=== PATIENT | female | born 1965 | race Caucasian/White ===

== ENCOUNTER 2023-03-10 21:27 | Inpatient (IN) | payer BC ==
[~2023-03-10] VITALS: Ht 170.2 cm; Wt 98.6 kg
[2023-03-10] MEDS ORDERED: ONDANSETRON 4MG 2ML VIAL As Ordered ONE (23:04)
[2023-03-10] MEDS ORDERED: KETOROLAC 30 MG/ML 1ML VIAL As Ordered ONE (23:04)
[2023-03-10 23:05] LABS: BASO # 0.1 10^3/uL (0.0-0.2); BASO % 0.3 % (0.0-1.0); EOS % 0.1 % (0.0-3.0); HEMOGLOBIN 10.7 g/dl (12.0-15.5); LYMPH # 2.3 10^3/uL (1.5-5.0); LYMPH % 13.2 % (24.0-44.0); MEAN CORPUSCULAR HEMOGLOBIN 30.5 pg (27.0-33.0); MEAN CORPUSCULAR HGB CONC 33.4 g/dl (32.0-36.5); MEAN CORPUSCULAR VOLUME 91.2 fl (80.0-96.0); MONO # 0.9 10^3/uL (0.0-0.8); MONO % 5.2 % (2.0-8.0); NEUTROPHILS # 13.6 10^3/uL (1.5-8.5); NEUTROPHILS % 79.4 % (36.0-66.0); PLATELET COUNT, AUTOMATED 206 10^3/uL (150-450); RED BLOOD COUNT 3.51 10^6/uL (4.00-5.40); WHITE BLOOD COUNT 17.1 10^3/uL (4.0-10.0)
[2023-03-10] MEDS ORDERED: KETOROLAC 30 MG/ML 1ML VIAL IV ONE (23:05)
[2023-03-10] MEDS ORDERED: NS 1,000 ML IV ONE (23:05)
[2023-03-10] MEDS ORDERED: ONDANSETRON 4MG 2ML VIAL IV ONE (23:05)
[2023-03-10 23:32] LABS: ALBUMIN 2.1 G/DL (3.2-5.2); BILIRUBIN,DIRECT 0.4 MG/DL (<0.4); BILIRUBIN,TOTAL 0.7 MG/DL (0.3-1.2); CALCIUM LEVEL 8.3 MG/DL (8.5-10.1); CREATININE FOR GFR 1.04 MG/DL (0.55-1.30); GLOMERULAR FILTRATION RATE 58.1 (>51); POTASSIUM SERUM 3.6 MMOL/L (3.5-5.1); TOTAL PROTEIN 5.9 G/DL (5.7-8.2)
[2023-03-11] VITALS (7 sets, daily range): BP systolic 100–119; BP diastolic 54–66; TEMP 97–97.3; O2SAT 93–98
[2023-03-11] MEDS ORDERED: CEFEPIME HCL 2 GM in D5W 50 ML IV SCH ×2
[2023-03-11] MEDS ORDERED: ASPI-161 PO (00:23)
[2023-03-11] MEDS ORDERED: AMLO1TAB24 PO (00:23)
[2023-03-11] MEDS ORDERED: LEVO100T5 PO (00:23)
[2023-03-11] MEDS ORDERED: LOSA100T46 PO (00:23)
[2023-03-11] MEDS ORDERED: VITA-243 PO (00:23)
[2023-03-11] MEDS ORDERED: DULA3PEN SQ (00:23)
[2023-03-11] MEDS ORDERED: D32000CA PO (00:23)
[2023-03-11] MEDS ORDERED: HOME MED LIST COMPLETE! XX SCH (00:25)
[2023-03-11] MEDS ORDERED: GLUCAGON INJ 1MG VIAL SC PRN (00:30)
[2023-03-11] MEDS ORDERED: DEXTROSE 50% 50ML SYRINGE IV PRN (00:30)
[2023-03-11] MEDS ORDERED: HYDROMORPHONE HCL 0.5 MG/ 0.5 ML SYRINGE IV PRN ×3 (00:30→12:05)
[2023-03-11] MEDS ORDERED: ACETAMINOPHEN TAB 650MG DOSE (2X325MG) PO PRN (00:30)
[2023-03-11] MEDS ORDERED: GLUCOSE 4GM CHEW TABLET PO PRN (00:30)
[2023-03-11] MEDS ORDERED: ONDANSETRON 4MG 2ML VIAL IV PRN ×2 (00:30→12:05)
[2023-03-11] MEDS: INSULIN LISPRO (NovoLOG) PER UNIT SC SCH ×4 (01:31→18:16)
[2023-03-11] MEDS: LR 1,000 ML IV SCH ×4 (03:16→22:35)
[2023-03-11] MEDS: TAMSULOSIN 0.4 MG CAP PO SCH (07:28)
[2023-03-11] MEDS: LEVOTHYROXINE 100MCG TABLET (0.1MG) PO SCH (07:28)
[2023-03-11] MEDS ORDERED: KETOROLAC 30 MG/ML 1ML VIAL IV PRN (08:00)
[2023-03-11] MEDS: HEPARIN SOD (PORCINE) 5000UNITS/ML 1ML VIAL/SYRINGE SC SCH ×2 (09:00→21:04)
[2023-03-11 09:34] LABS: BASO % 0.3 % (0.0-1.0); EOS # 0.1 10^3/uL (0.0-0.5); EOS % 0.4 % (0.0-3.0); HEMATOCRIT 30.4 % (36.0-47.0); HEMOGLOBIN 10.1 g/dl (12.0-15.5); LYMPH % 17.1 % (24.0-44.0); MEAN CORPUSCULAR HEMOGLOBIN 30.7 pg (27.0-33.0); MEAN CORPUSCULAR HGB CONC 33.2 g/dl (32.0-36.5); MEAN CORPUSCULAR VOLUME 92.4 fl (80.0-96.0); MONO # 0.6 10^3/uL (0.0-0.8); MONO % 5.5 % (2.0-8.0); NEUTROPHILS # 8.7 10^3/uL (1.5-8.5); NEUTROPHILS % 75.4 % (36.0-66.0); PLATELET COUNT, AUTOMATED 194 10^3/uL (150-450); RED BLOOD COUNT 3.29 10^6/uL (4.00-5.40); WHITE BLOOD COUNT 11.6 10^3/uL (4.0-10.0)
[2023-03-11 10:05] LABS: BLOOD UREA NITROGEN 13 MG/DL (9-23); CALCIUM LEVEL 8.1 MG/DL (8.5-10.1); CARBON DIOXIDE LEVEL 25 MMOL/L (20-31); CHLORIDE LEVEL 110 MMOL/L (98-107); CREATININE FOR GFR 0.82 MG/DL (0.55-1.30); GLOMERULAR FILTRATION RATE > 60.0 (>51); GLUCOSE, FASTING 110 MG/DL (60-100); POTASSIUM SERUM 4.1 MMOL/L (3.5-5.1); SODIUM LEVEL 141 MMOL/L (136-145)
[2023-03-11] MEDS ORDERED: MIDAZOLAM INJ 2MG/2ML VIAL As Ordered ONE (10:57)
[2023-03-11] MEDS ORDERED: propofoL 200 MG/20 ML VIAL As Ordered ONE (10:57)
[2023-03-11] MEDS ORDERED: LIDOCAINE 2% 100MG/5ML SDV (FOR ANES.) As Ordered ONE (10:57)
[2023-03-11] MEDS ORDERED: fentaNYL 100 MCG/2 ML INJECTION As Ordered ONE (10:57)
[2023-03-11] MEDS ORDERED: ONDANSETRON 4MG 2ML VIAL As Ordered ONE (10:57)
[2023-03-11] MEDS ORDERED: KETOROLAC 60MG 2ML VIAL As Ordered ONE (10:58)
[2023-03-11] MEDS ORDERED: ISOVUE-300 61% 100ML VIAL As Ordered ONE (11:06)
[2023-03-11] MEDS ORDERED: cefoTEtan 2GM VIAL As Ordered ONE (11:29)
[2023-03-11] MEDS ORDERED: ePHEDrine SULFATE 25 MG/5 ML(5MG/ML) SYRINGE As Ordered ONE (11:58)
[2023-03-11] MEDS ORDERED: METOCLOPRAMIDE INJ 10MG/2ML VIAL IV PRN (12:05)
[2023-03-11] MEDS ORDERED: LR 1,000 ML IV SCH (12:05)
[2023-03-11] MEDS ORDERED: fentaNYL 100 MCG/2 ML INJECTION IV PRN (12:05)
[2023-03-11] MEDS: CEFEPIME HCL 2 GM in D5W 50 ML IV SCH (15:01)
[2023-03-11] MEDS ORDERED: HEPARIN SOD (PORCINE) 5000UNITS/ML 1ML VIAL/SYRINGE SC SCH (18:00)
[2023-03-12] MEDS: INSULIN LISPRO (NovoLOG) PER UNIT SC SCH ×2 (00:38→06:14)
[2023-03-12] MEDS: CEFEPIME HCL 2 GM in D5W 50 ML IV SCH ×2 (02:03→10:53)
[2023-03-12 02:40] VITALS: BP 112/64; TEMP 97.5; O2SAT 95
[2023-03-12 05:30] VITALS: BP 104/48; TEMP 96.6; O2SAT 97
[2023-03-12] MEDS: LEVOTHYROXINE 100MCG TABLET (0.1MG) PO SCH (06:14)
[2023-03-12 06:30] LABS: BASO % 0.1 % (0.0-1.0); HEMATOCRIT 29.2 % (36.0-47.0); HEMOGLOBIN 9.6 g/dl (12.0-15.5); LYMPH # 1.4 10^3/uL (1.5-5.0); LYMPH % 15.1 % (24.0-44.0); MEAN CORPUSCULAR HEMOGLOBIN 30.3 pg (27.0-33.0); MEAN CORPUSCULAR HGB CONC 32.9 g/dl (32.0-36.5); MEAN CORPUSCULAR VOLUME 92.1 fl (80.0-96.0); MONO # 0.3 10^3/uL (0.0-0.8); MONO % 3.1 % (2.0-8.0); NEUTROPHILS # 7.7 10^3/uL (1.5-8.5); NEUTROPHILS % 80.5 % (36.0-66.0); PLATELET COUNT, AUTOMATED 209 10^3/uL (150-450); RED BLOOD COUNT 3.17 10^6/uL (4.00-5.40); WHITE BLOOD COUNT 9.5 10^3/uL (4.0-10.0)
[2023-03-12 07:03] LABS: BLOOD UREA NITROGEN 15 MG/DL (9-23); CALCIUM LEVEL 8.3 MG/DL (8.5-10.1); CARBON DIOXIDE LEVEL 23 MMOL/L (20-31); CHLORIDE LEVEL 107 MMOL/L (98-107); CREATININE FOR GFR 0.72 MG/DL (0.55-1.30); GLOMERULAR FILTRATION RATE > 60.0 (>51); GLUCOSE, FASTING 142 MG/DL (60-100); SODIUM LEVEL 138 MMOL/L (136-145)
[2023-03-12] MEDS ORDERED: FLOM0.4C39 PO ×2 (09:13→09:40)
[2023-03-12] MEDS: TAMSULOSIN 0.4 MG CAP PO SCH (09:14)
[2023-03-12] MEDS: HEPARIN SOD (PORCINE) 5000UNITS/ML 1ML VIAL/SYRINGE SC SCH (09:14)
[2023-03-12] MEDS ORDERED: NS 1,000 ML IV ONE (09:15)
[2023-03-12] MEDS ORDERED: LEVO1TAB40 PO ×2 (09:39→12:45)
[2023-03-12] MEDS ORDERED: SELF1KIT MC (09:41)
[2023-03-12] MEDS ORDERED: MIDODRINE 5 MG TAB PO ONE (10:00)
[2023-03-12 10:40] VITALS: TEMP 97.4; O2SAT 98
[2023-03-12 11:01] VITALS: BP 140/70
== END 2023-03-12 12:24 | disposition home or self-care (01) | DRG 463 ==
LOC: M ED 21:27 → M ED INP 03-11 00:28 → M MSPAV 03-11 13:35
PROVIDERS: ADMIT Internal Medicine; ATTEND General Practice
PROC: 0T764DZ Dilation of Right Ureter with Intraluminal Device, Percutaneous Endoscopic Approach (ICD-10-PCS; principal; 2023-03-11 11:00)
DX: N13.6 Pyonephrosis (principal); I10 Essential (primary) hypertension; E11.9 Type 2 diabetes mellitus without complications; E03.9 Hypothyroidism, unspecified; E66.9 Obesity, unspecified; F17.210 Nicotine dependence, cigarettes, uncomplicated; Z88.5 Allergy status to narcotic agent; Z79.899 Other long term (current) drug therapy; Z79.82 Long term (current) use of aspirin

== ENCOUNTER 2023-04-15 07:55 | Day surgery (SDC) | payer BC ==
[~2023-04-15] VITALS: Ht 170.2 cm; Wt 94.6 kg
[~2023-04-15 07:55] MED LIST: AMLO1TAB24 PO; ASPI-161 PO; D32000CA PO; DULA3PEN SQ; FLOM0.4C39 PO; LEVO100T5 PO; LEVO1TAB40 PO; LOSA100T46 PO; LOSA25TA13 PO; SELF1KIT MC; VITA-243 PO
[2023-04-15] MEDS ORDERED: MIDAZOLAM INJ 2MG/2ML VIAL As Ordered ONE (08:15)
[2023-04-15] MEDS ORDERED: LIDOCAINE 2% 100MG/5ML SDV (FOR ANES.) As Ordered ONE (08:16)
[2023-04-15] MEDS ORDERED: fentaNYL 100 MCG/2 ML INJECTION As Ordered ONE (08:16)
[2023-04-15] MEDS ORDERED: propofoL 200 MG/20 ML VIAL As Ordered ONE ×2 (08:16→08:17)
[2023-04-15] MEDS ORDERED: ONDANSETRON 4MG 2ML VIAL As Ordered ONE (08:16)
[2023-04-15] MEDS ORDERED: KETOROLAC 60MG 2ML VIAL As Ordered ONE (08:17)
[2023-04-15] MEDS ORDERED: ceFAZolin SOD 2 GM in IV 1 EA IV ONE (08:25)
[2023-04-15] MEDS ORDERED: LR 1,000 ML IV SCH ×2 (08:25→09:55)
[2023-04-15] MEDS ORDERED: ISOVUE-300 61% 100ML VIAL As Ordered ONE (09:05)
[2023-04-15] MEDS ORDERED: METOCLOPRAMIDE INJ 10MG/2ML VIAL As Ordered ONE (09:27)
[2023-04-15] MEDS ORDERED: ACETAMINOPHEN 1000MG 100ML IV BAG As Ordered ONE (09:32)
[2023-04-15] MEDS ORDERED: diphenhydrAMINE 50MG/ML VIAL IV PRN (09:55)
[2023-04-15] MEDS ORDERED: oxyCODONE 5MG TAB PO PRN (09:55)
[2023-04-15] MEDS ORDERED: HYDROMORPHONE HCL 0.5 MG/ 0.5 ML SYRINGE IV PRN (09:55)
[2023-04-15] MEDS ORDERED: METOCLOPRAMIDE INJ 10MG/2ML VIAL IV PRN (09:55)
[2023-04-15] MEDS ORDERED: ONDANSETRON 4MG 2ML VIAL IV PRN (09:55)
[2023-04-15] MEDS ORDERED: fentaNYL 100 MCG/2 ML INJECTION IV PRN (09:55)
[2023-04-15] MEDS ORDERED: MEPERIDINE 25 MG/ML 1ML VIAL IV PRN (09:55)
[2023-04-15] MEDS ORDERED: PERCOCET 5MG/325MG TAB PO PRN (10:20)
[2023-04-15 11:30] VITALS: BP 131/69; TEMP 98; O2SAT 99
== END 2023-04-15 11:30 | disposition home or self-care (01) ==
LOC: M SDC 07:55
PROVIDERS: ATTEND Urology
DX: N20.1 Calculus of ureter (principal); I10 Essential (primary) hypertension; E11.9 Type 2 diabetes mellitus without complications; E03.9 Hypothyroidism, unspecified; Z79.82 Long term (current) use of aspirin; Z79.899 Other long term (current) drug therapy; Z88.5 Allergy status to narcotic agent; F17.218 Nicotine dependence, cigarettes, with other nicotine-induced disorders
CPT/HCPCS: 52310; 76000; C1769; J0131; J0690; J1100; J1885; J2250; J2405; J2765; J3010; Q9967